=== PATIENT | male | born 2000 | race Caucasian/White ===

== ENCOUNTER 2023-07-17 18:51 | Emergency (ER) | payer MEDICAID, SELFPAY ==
--- NOTE | ~2023-07-17 | XR_ITS ---
EXAMINATION: XR HAND, RIGHT CLINICAL INFORMATION: Pain. COMPARISON: None available. TECHNIQUE: PA, lateral, and oblique views of the right hand. FINDINGS: The bone mineralization is normal. There is an apparent 3 mm fracture fragment along the dorsum of the distal interphalangeal joint fifth digit. No other fracture is seen. There is soft tissue swelling about the distal interphalangeal joint fifth digit. XR/XR hand RT min 3V IMPRESSION: 3 mm fracture fragment along the dorsum of the distal phalanx fifth digit consistent with fracture. The exact origin of the fracture fragment is not determined.
[2023-07-17 19:44] VITALS: BP 126/56; PULSE 81; RESP 18; TEMP 37.6; O2SAT 97; BMI 21.1
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
[2023-07-17 21:12] VITALS: BP 126/63; PULSE 63; RESP 18; TEMP 36.9; O2SAT 100
== END 2023-07-18 00:02 | disposition home or self-care (01) ==
PROVIDERS: Emergency Provider Emergency Medicine
DX: S62.636A Displaced fracture of distal phalanx of right little finger, initial encounter for closed fracture (principal); Y04.2XXA Assault by strike against or bumped into by another person, initial encounter; Y93.9 Activity, unspecified; Y92.9 Unspecified place or not applicable; Y99.9 Unspecified external cause status
CPT/HCPCS: 73130; 99283; 99284